=== PATIENT | female | born 1970 | race African-American/Black ===

== ENCOUNTER 2020-08-21 12:07 | Emergency (ER) | payer SELFPAY ==
[~2020-08-21] VITALS: Ht 162.6 cm; Wt 103.4 kg
[2020-08-21] MEDS ORDERED: KETOROLAC TROMETHAMINE 30 MG/ML VIAL IM STA (12:25)
[2020-08-21] MEDS ORDERED: DEXAMETHASONE SOD PHOS INJ 4 MG/ML VIAL IM ONE (12:30)
[2020-08-21] MEDS ORDERED: DEXAMETHASONE SOD PHOS INJ 4 MG/ML VIAL ONE (13:11)
[2020-08-21] MEDS ORDERED: NAPROSYN500 MG PO (13:29)
== END 2020-08-21 13:54 | disposition home or self-care (01) ==
LOC: EDBD 12:07 → FSED 12:26
DX: M25.562 Pain in left knee (principal); Y93.01 Activity, walking, marching and hiking
CPT/HCPCS: 73562; 96372; 99283; J1100; J1885